=== PATIENT | female | born 1990 | race Caucasian/White ===

== ENCOUNTER 2017-06-20 22:37 | Outpatient (CLI) | payer BC ==
[~2017-06-20] VITALS: Ht 172.7 cm; Wt 83.9 kg
[2017-06-20] MEDS ORDERED: PRENATAL TABLE1 EAC3 PO (23:07)
[2017-06-20 23:08] VITALS: BP 130/81
[2017-06-20] MEDS ORDERED: IRON 100 PLUS1 EACH PO (23:08)
[2017-06-21] MEDS ORDERED: MOTRIN800 MG PO (03:15)
== END 2017-06-21 01:00 | disposition home or self-care (01) ==
LOC: LDRP-OP 22:37 → 2WEST 22:38 → LDRP-OP 07-15 10:00
DX: O47.9 False labor, unspecified (principal); Z3A.00 Weeks of gestation of pregnancy not specified; Z23 Encounter for immunization
CPT/HCPCS: 59025; 90686; G0378

== ENCOUNTER 2017-06-21 02:36 | Inpatient (IN) | payer BC ==
[2017-06-21] VITALS (10 sets, daily range): BP systolic 105–134; BP diastolic 58–85
[~2017-06-21] VITALS: Ht 172.7 cm; Wt 83.9 kg
[~2017-06-21 02:36] MED LIST: IRON 100 PLUS1 EACH PO; PRENATAL TABLE1 EAC3 PO
[2017-06-21] MEDS ORDERED: MOTRIN800 MG PO (03:15)
[2017-06-22 07:32] LABS: BASOPHIL COUNT 0.1 K/uL (0-0.1); EOSINOPHIL COUNT 0.3 K/uL (0-0.3); HEMATOCRIT 29.6 % (36.0-46.0); IMMATURE GRANULOCYTE (%) 1.4 % (0.0-0.7); IMMATURE GRANULOCYTE COUNT 0.2 K/uL; INSTRUMENT ABS NEUTROPHIL CT 6.7 K/uL; LYMPHOCYTE COUNT 2.6 K/uL (1.0-2.8); MCH 21.1 PG (29.0-34.0); MCHC 31.1 G/DL (30.0-36.0); MEAN PLAT.VOLUME 11.8 uM^3 (9.5-12.4); MONOCYTE (%) 6.5 % (3-12); MONOCYTE COUNT 0.7 K/uL (0-0.8); NEUTROPHIL (%) 64.1 % (45-76); NEUTROPHIL COUNT 6.7 K/uL (1.8-6.4); NRBC (%) 0.2 /100 WBC (0-0); PLATELET COUNT 149 K/uL (156-360); RBC DIS.WIDTH-CV 15.8 % (11.8-14.6); RBC DIS.WIDTH-SD 37.5 % (39-53); RED BLOOD COUNT 4.35 M/uL (3.80-5.20); WHITE BLOOD COUNT 10.5 K/uL (4.1-10.2)
== END 2017-06-22 14:40 | disposition home or self-care (01) | DRG 775 ==
LOC: LDRP-OP 02:36 → 2WEST 02:37 → LDRP-OP 07-20 01:05
PROVIDERS: Nurse Practitioner
PROC: 10E0XZZ Delivery of Products of Conception, External Approach (ICD-10-PCS; principal; 2017-06-21)
DX: O62.3 Precipitate labor (principal); O99.02 Anemia complicating childbirth; D56.3 Thalassemia minor; O22.13 Genital varices in pregnancy, third trimester; Z91.040 Latex allergy status; Z3A.40 40 weeks gestation of pregnancy; Z37.0 Single live birth
CPT/HCPCS: 59025; 85025; 90686; G0378; J2590